=== PATIENT | male | born 1985 | race Caucasian/White ===

== ENCOUNTER → 2020-10-16 14:18 | Outpatient (CLI) | payer OTHER, MEDICAID, SELFPAY ==
[2020-10-16] MEDS: COVID-19 VACC, Ad26(JANSSEN)/PF 0.5 ML IM (14:27)
== END ==
PROVIDERS: Visit Provider Internal Medicine
DX: Z23 Encounter for immunization (principal)
CPT/HCPCS: 0031A; 91303

== ENCOUNTER 2021-07-25 17:30 | Emergency (ER) | payer OTHER, MEDICAID, SELFPAY ==
[2021-07-25 17:38] VITALS: BP 130/83; PULSE 72; RESP 16; TEMP 36.8; O2SAT 98; BMI 23.0
--- NOTE | 2021-07-25 17:44 | PC.NURSE ---
no motor sensory deficits noted
[2021-07-25] MEDS: LIDO 1%/SOD BICARB 8.4% (10ML) 10 ML SYRINGE INJ (17:53)
[2021-07-25 18:29] VITALS: BP 126/83; PULSE 77; RESP 16; O2SAT 98
--- NOTE | 2021-07-25 18:39 | ED_ITS ---
HPI - Wound/Laceration <Barrett Gibbs PA-C - Last Filed: 07/25/21 19:59> General Chief Complaint: Wound/Laceration Stated Complaint: Cut Left Hand Time Seen by Provider: 07/25/21 17:39 Source: patient Mode of arrival: Ambulatory History of Present Illness HPI narrative: Patient is a 28-year-old male presenting to the emergency department today for evaluation of left hand lacerations. Patient states that he was using a handheld chainsaw pruning trees when a he cut his left index finger. He states that the injury occurred approximately 1500 today. He denies pain or injury elsewhere. He states that he bandage his hands together tightly and continued working after laceration occurred. Patient denies fever, chills, chest pain, cough, shortness of breath, nausea, vomiting, diarrhea, dysuria, hematuria, numbness and tingling in the bilateral upper extremities, or any other concerning symptoms. No further concerns reports that this time. Related Data Home Medications Medication Instructions Recorded Confirmed . (No Home Medications) #0 01/21/10 Allergies Allergy/AdvReac Type Severity Reaction Status Date / Time No Known Drug Allergies Allergy Verified 07/25/21 17:54 Review of Systems <Barrett Gibbs PA-C - Last Filed: 07/25/21 19:59> Constitutional Constitutional: Denies chills, Denies fatigue, Denies fever(s), Denies frequent falls, Denies lethargy and Denies weakness Eyes Eyes: Denies loss of vision ENT Ears, Nose, Mouth, and Throat: Denies dizziness and Denies neck pain Cardiovascular Cardiovascular: Denies chest pain, Denies irregular heart rhythm, Denies lightheadedness, Denies palpitations, Denies dyspnea, Denies dyspnea on exertion and Denies orthopnea Respiratory Respiratory: Denies cough, Denies dyspnea, Denies dyspnea on exertion and Denies wheezing Gastrointestinal Gastrointestinal: Denies abdominal pain, Denies change in bowel habits, Denies diarrhea, Denies nausea and Denies vomiting Genitourinary Genitourinary: Denies hematuria, Denies flank pain, Denies urinary incontinence and Denies urinary urgency Musculoskeletal Musculoskeletal: Denies back pain, Denies muscle weakness, Denies neck pain, Denies numbness and Denies tingling Integumentary/Breasts Skin/Breast: Denies pruritus, Denies erythema, Denies rash and Reports wounds (Lacerations to left 2nd digit) Neurologic Neurologic: Denies behavioral changes, Denies confusion, Denies dizziness, Denies frequent falls, Denies loss of vision, Denies numbness, Denies tingling and Denies weakness Psychiatric Psychiatric: Denies behavioral changes and Denies confusion Endocrine Endocrine: Denies fatigue and Denies palpitations Allergic/Immunologic Allergic/Immunologic: Denies wheezing Patient History <Barrett Gibbs PA-C - Last Filed: 07/25/21 19:59> Social History Smoking Status: Former smoker Smoking Status: Former smoker alcohol intake frequency: holidays/special occasions only Substance Use Type: does not use Exam <Barrett Gibbs PA-C - Last Filed: 07/25/21 19:59> Narrative Exam Narrative: GENERAL: 36 year old patient appears stated age. Well-developed patient, in no acute distress. HEAD: Atraumatic. Normocephalic. EYES: Pupils equal round and reactive. Extraocular motions intact. No scleral icterus. No injection or drainage. ENT: Nose without bleeding, purulent drainage. Throat without erythema, tonsillar hypertrophy or exudate. Airway patent. NECK: Trachea midline. Non tender CARDIOVASCULAR: Regular rate and rhythm without murmurs, gallops, or rubs. RESPIRATORY: Clear to auscultation. Breath sounds equal bilaterally. No wheezes, rales, or rhonchi. GASTROINTESTINAL: Abdomen soft, non-tender, nondistended. EXTREMITIES: No edema or joint tenderness. BACK: Nontender without deformity or crepitance. No flank tenderness. NEURO: AOx3. SKIN: No rash or erythema of visible areas. Approximately 3.8 linear laceration noted to the medial aspect the left 2nd digit dorsally. A 1.2 cm crescent jean shaped laceration also noted over the dorsal aspect of the left 2nd digit over the proximal PIP joint. No surrounding erythema noted over either laceration. No foreign body noted in either laceration. No discharge noted. Deep structures intact. Initial Vital Signs Initial Vital Signs: Vital Signs Temperature 98.2 F 07/25/21 17:38 Pulse Rate 72 07/25/21 17:38 Respiratory Rate 16 07/25/21 17:38 Blood Pressure 130/83 07/25/21 17:38 Pulse Oximetry 98 07/25/21 17:38 <Vin Jensen DO - Last Filed: 07/26/21 03:14> Initial Vital Signs Initial Vital Signs: Vital Signs Temperature 98.2 F 07/25/21 17:38 Pulse Rate 72 07/25/21 17:38 Respiratory Rate 16 07/25/21 17:38 Blood Pressure 130/83 07/25/21 17:38 Pulse Oximetry 98 07/25/21 17:38 Procedures <ERIC Doe Last Filed: 07/25/21 19:59> Laceration Repair Laceration 1: Time of procedure: 18:40 Site: hand Side (If applicable): left Size (cm): 3.8 Description: linear Depth: simple, single layer Local Anesthetic: lidocaine 1% Amount of anesthesia used (mL): 4 Pre-repair: wound explored, irrigated extensively and deep structures intact Skin layer closed with: nylon Size (cm): 5-0 Number of sutures: 7 Technique: simple, interrupted Laceration 2: Time of procedure: 18:41 Site: hand Side (If applicable): left Size (cm): 1.2 Description: flap Depth: simple, single layer Local Anesthetic: lidocaine 1% Amount of anesthesia used (mL): 2 Pre-repair: wound explored, irrigated extensively and deep structures intact Skin layer closed with: nylon Size (cm): 5-0 Number of sutures: 5 Technique: simple, interrupted Course <ERIC Doe Last Filed: 07/25/21 19:59> Course Course Narrative: Six total mL 1% lidocaine used as anesthetic. Lacerations were closed with nylon sutures. Orders Ordered: Discontinued Medications Lidocaine/Sodium Bicarbonate (Lido 1%/Sod Bicarb 8.4% (10ml) 10 Ml Syringe) 10 ml INJ NOW ONE Stop: 07/25/21 17:45 Last Admin: 07/25/21 17:53 Dose: 10 ml Documented by: MARI Vital Signs Vital signs: Vital Signs - 8 hr 07/25/21 17:38 07/25/21 18:29 Temperature 98.2 F Pulse Rate 72 77 Respiratory Rate 16 16 Blood Pressure 130/83 126/83 Pulse Oximetry 98 98 <DO Theresa Belcher Last Filed: 07/26/21 03:14> Orders Ordered: Discontinued Medications Lidocaine/Sodium Bicarbonate (Lido 1%/Sod Bicarb 8.4% (10ml) 10 Ml Syringe) 10 ml INJ NOW ONE Stop: 07/25/21 17:45 Last Admin: 07/25/21 17:53 Dose: 10 ml Documented by: MARI Vital Signs Vital signs: Vital Signs - 8 hr 07/25/21 17:38 07/25/21 18:29 Temperature 98.2 F Pulse Rate 72 77 Respiratory Rate 16 16 Blood Pressure 130/83 126/83 Pulse Oximetry 98 98 MDM - Wound/Laceration <Barrett Gibbs PA-C - Last Filed: 07/25/21 19:59> MDM Narrative Medical decision making narrative: To consider superficial skin laceration versus deep tissue laceration versus tendon rupture. Overall physical examination and history are reassuring. Lacerations were closed with 5 0 nylon sutures and wound edges were approximated well. Patient tolerated the procedure well. At this time he states he would like to be discharged home. Strict return precautions were discussed with the patient prior to discharge. I instructed the patient to have the sutures removed in 10-14 days. Instructed the patient to either return here to the emergency department, urgent care, or his primary care provider's office to have the sutures removed. Patient expresses understanding and agrees to plan. Patient is stable for discharge at this time. Discharge Plan Departure Patient Disposition: Home Clinical Impression: Laceration Instructions: DI for Laceration Repair Activity Restrictions/Additional Instructions: *You have been diagnosed with left hand lacerations *What to do: *Please continue to take your regular medications as directed. [ ] New medication prescriptions sent to your pharmacy: [ ] [ ] New medication written as a paper prescription [X] No new medications given *Please follow up with your primary care provider in 2-3 days, call for an appointment. Let them know you were seen in the Emergency Department and that we ask that you be seen in follow up. We will electronically transmit a record of today's note if your PCP is in our system *If you do not have a primary care provider please contact the [facility] Resource line at [phone]. They will ask some questions about your medical history and help get you set up with a doctor in the community. *Return to Emergency Department if you should have any new, worsening or concerning symptoms, such as fever greater than 101 F, shaking chills, worsening pain, swelling around the lacerations, discharge from the lacerations, warmth emanating from the lacerations, persistent vomiting or other bothersome symptoms. Prescriptions: No Action . (No Home Medications) Qty: 0 0RF <Vin Jensen DO - Last Filed: 07/26/21 03:14> Cosign ED Attending Cosignature Attestation: I was immediately available in the department for consultation. This documentation has been reviewed and I agree with assessment and plan. Supervised by Vin Jensen DO
== END 2021-07-25 19:00 | disposition home or self-care (01) ==
PROVIDERS: Emergency Provider Physician Assistant
DX: S61.211A Laceration without foreign body of left index finger without damage to nail, initial encounter (principal); W29.3XXA Contact with powered garden and outdoor hand tools and machinery, initial encounter
CPT/HCPCS: 12042; 99283